=== PATIENT | male | born 1945 | race Caucasian/White ===

== ENCOUNTER 2017-08-03 14:31 | Emergency (ER) | payer BC ==
--- NOTE | 2017-08-03 14:38 | PDOC ---
History of Present Illness - General History Source: Patient, EMS, Co-worker Exam Limitations: No Limitations - History of Present Illness Initial Comments: 08/03/17 15:28 72 y.o male with significant PMHx of Afib (on eliquis), HTN, HLD, COPD and anxiety, who presents to the emergency room complaining of right lower extremity weakness that began at 1:15pm this afternoon. He reports feeling jumpy , then felt that his right lower extremity felt weak and started to drag behind him. 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 The patients coworker states that the patient has been working long hours and is under a lot of stress to take care of family members at home. On the way to [place], the patient developed expressive aphasia and right sided facial droop. Within 1 minute the expressive aphasia resolved. He was A&O x3, but still had right sided weakness. Denies chest pain, SOB, cough. Denies fever, chills, nausea, vomiting. Denies recent illness. Denies leg swelling. Allergies: Not recorded PCP: not affiliated - [facility] <Tiara Gonzalez - Last Filed: 08/03/17 16:49> <Belem Flores - Last Filed: 08/03/17 17:40> - General Chief Complaint: CVA/TIA Stated Complaint: RT EYE DROOP,RT LEG NUMB Time Seen by Provider: 08/03/17 14:34 Past History <Tiara Gonzalez - Last Filed: 08/03/17 16:49> <Belem Flores - Last Filed: 08/03/17 17:40> - Past Medical History Allergies/Adverse Reactions: Allergies Allergy/AdvReac Type Severity Reaction Status Date / Time No Known Allergies Allergy Verified 08/03/17 14:47 Home Medications: Ambulatory Orders Atorvastatin Ca [Lipitor] 10 mg PO HS 08/03/17 Diovan 08/03/17 Eliquis 08/03/17 Metoprolol Succinate 08/03/17 Paroxetine HCl [Paxil] 10 mg PO 08/03/17 Umeclidinium Brm/Vilanterol Tr [Anoro Ellipta 62.5-25 Mcg INH] 1 each IH DAILY 08/03/17 Review of Systems - Review of Systems Able to Perform ROS?: Yes Comments:: 08/03/17 15:28 GENERAL/CONSTITUTIONAL: No fever or chills. No weakness. HEAD, EYES, EARS, NOSE AND THROAT: No change in vision. No ear pain or discharge. No sore throat. GASTROINTESTINAL: No nausea, vomiting, diarrhea or constipation. GENITOURINARY: No dysuria, frequency, or change in urination. CARDIOVASCULAR: No chest pain or shortness of breath. RESPIRATORY: No cough, wheezing, or hemoptysis. MUSCULOSKELETAL: No joint or muscle swelling or pain. No neck or back pain. SKIN: No rash NEUROLOGIC: +right lower extremity weakness. No headache, vertigo, loss of consciousness. ENDOCRINE: No increased thirst. No abnormal weight change. HEMATOLOGIC/LYMPHATIC: No anemia, easy bleeding, or history of blood clots. ALLERGIC/IMMUNOLOGIC: No hives or skin allergy. <Tiara Gonzalez - Last Filed: 08/03/17 16:49> *Physical Exam - Vital Signs Last Vital Signs Temp Pulse Resp BP Pulse Ox 98.2 F 79 20 170/88 99 08/03/17 14:33 08/03/17 14:33 08/03/17 14:33 08/03/17 15:07 08/03/17 14:33 - Physical Exam Comments: 08/03/17 15:28 GENERAL: Awake, alert, and fully oriented, in no acute distress HEAD: No signs of trauma EYES: PERRLA, EOMI, sclera anicteric, conjunctiva clear ENT: Auricles normal inspection, hearing grossly normal, nares patent, oropharynx clear without exudates. Moist mucosa NECK: Normal ROM, supple, no lymphadenopathy, JVD, or masses LUNGS: Breath sounds equal, clear to auscultation bilaterally. No wheezes, and no crackles HEART: Regular rate and rhythm, normal S1 and S2, no murmurs, rubs or gallops ABDOMEN: Soft, nontender, normoactive bowel sounds. No guarding, no rebound. No masses EXTREMITIES: Normal range of motion, no edema. No clubbing or cyanosis. No cords, erythema, or tenderness BACK: No midline spinal tenderness in cervical/thoracic/lumbar region NEUROLOGICAL: +expressive aphasia, +R sided facial droop with forehead sparing , negative pronator drift, 4/5 strength in RLE, 5/5 strength in remaining extremities, normal sensation to light touch in all 4 extremities, normal cerebellar exam, gait deferred SKIN: Warm, Dry, normal turgor, no rashes or lesions noted. <Robert Gonzalezssica - Last Filed: 08/03/17 16:49> NIH Stroke Scale - Last Known Well Date/Time & Onset Date Last Known Well: 08/03/17 Time Last Known Well: 13:15 - Initial Evaluation Level of consciousness: Alert Ask patient the month and their age: Both incorrect Ask patient to open & close eyes; make fist and let go: Both incorrect Best gaze (horizontal eye movement): Normal Visual field testing: No visual field loss Facial paresis (Show teeth/raise eyebrows/close eyes tight): Complete paralysis of one or both sides (Upper and lower face) Motor Function: Left Arm: Normal Motor Function: Right Arm: Normal (extends arm 90 (or 45) degrees for 10 seconds without drift Motor Function: Left Leg: Normal (extends leg 30 degrees for 5 seconds without drift) Motor Function: Right Leg: Drift Limb Ataxia: No ataxia Sensory(Use pinprick test arms,legs,trunk,face/side to side): Normal Best language (Describe picture, name items, read sentences): Severe aphasia Dysarthria (read several words): Near unintelligible or unable to speak Extinction and Inattention: No abnormality - Total Score NIH Stroke Scale Score: 12 <Belem Flores - Last Filed: 08/03/17 17:40> Critical Care Time/MDM Note Total Critical Care Time: 60 Critical Care Statement: The care of this patient involved high complexity decision making to prevent further life threatening deterioration of the patient 's condition and/or to evaluate & treat vital organ system(s) failure or risk of failure. - Medical Decision Making Note: 08/03/17 15:12 72-year-old male with a history of A. fib on Eliquis, hypertension, hyperlipidemia, COPD, depression presents with stroke symptoms. Vitals remarkable for hypertension to 170s systolic. Initial exam with an NIH stroke scale of 1 due to right lower extremity weakness however on the way to CT scan, the patient developed a right facial droop, and expressive aphasia, stroke scale now 14. Initial CTH with likely temperal-occipital L sided acute stroke. Although pt is in TPA window, upon discussion with Dr. Baker, pt is not a TPA candidate due to eliquis (last taken this morning). He is however, possibly a candidate for clot retrieval. Pt currently at [facility], will discuss with radiology and possibly transfer to [facility] as soon as images are up. For now, will leave BP as is due to the ischemic nature of the stroke. Labs pending. 08/03/17 16:[address] Diana Driscoll ([phone]) who is a HEARING AID ASSIST[employer] doctor in [place] called in, she will be taking a flight in this evening. CTA with truncation of [employer] adjacent to ischemic territory. Discussed with Dr. Combs, although small vessel truncation, will discuss with [facility]. A code brain was called into the [facility] transfer center, I spoke with stroke fellow Dr. Kaleb Albert who accepts the patient for transfer under attending Dr. Arzola from neuro. Pt accepted to the ER, I spoke with ER attending Dr. Womack and discussed the transfer. In the meantime, I ordered another bolus for the patient for permissive HTN and ordered ASA 325mg. He currently c/o word finding difficulty and RLE weakness. I will call his daughter to update her currently. 08/03/17 17:[address] Driscoll informed of transfer. Currently awaiting transport. \ 08/03/17 17:40 ACLS crew has arrived to transport patient to [facility]. <Belem Flores - Last Filed: 08/03/17 17:40> Discharge Disposition <Tiara Gonzalez - Last Filed: 08/03/17 16:49> - Discharge Dispostion Admit: No - Transfer to Acute Care Facility Receiving Facility: [facility] <Belem Flores - Last Filed: 08/03/17 17:40> - Diagnosis Cerebrovascular accident (CVA) - Discharge Dispostion Disposition: TRANSFER ACUTE CARE/OTHER HOSP Condition at time of disposition: Guarded ED Treatment Course - LABORATORY CBC & Chemistry Diagram: 08/03/17 14:33 08/03/17 14:33 - ADDITIONAL ORDERS Additional order review: Laboratory Results 08/03/17 08/03/17 14:33 14:33 Sodium 141 Potassium 4.3 Chloride 105 Carbon Dioxide 27 Anion Gap 9 BUN 17 Creatinine 1.1 Creat Clearance w eGFR > 60 Random Glucose 108 H Calcium 9.8 Total Bilirubin 0.8 AST 24 ALT 23 Alkaline Phosphatase 48 Creatine Kinase 55 Troponin I < 0.03 L Total Protein 7.3 Albumin 4.6 Triglycerides 55 Cholesterol 162 HDL Cholesterol 46 08/03/17 14:33 RBC 5.62 H MCV 86.5 MCHC 34.1 RDW 12.7 MPV 9.1 Neutrophils % 78.0 Lymphocytes % 14.0 Monocytes % 6.6 Eosinophils % 1.3 Basophils % 0.1 - RADIOLOGY Radiograph Interpretation: 08/03/17 16:49 EXAM#: TYPE/EXAM: RESULT: [id number] CT/BRAIN CTA Brain CT angiography CLINICAL INFORMATION: right lower extremity weakness, right facial weakness, expressive aphasia Multiplanar imaging was performed following the intravenous bolus administration of nonionic contrast. Individual partition images as well as projection and reformatted images are reviewed. Delayed contrast-enhanced imaging was also performed with comparison to a noncontrast CT exam performed earlier the same date. There is slight attenuation of the left posterior cerebral artery distally within the territory of an acute left occipital-temporal cortical infarct identified on CT. No intraluminal embolus/thrombus is identified. There is no extrinsic abnormality. The vertebrobasilar and carotid circulations otherwise appear unremarkable. A 1.7 x 1.4 cm moderately hyperdense left medial frontal focus described on noncontrast CT demonstrates minimal to mild contrast enhancement. No perilesional edema or mass effect is identified. IMPRESSION: There is minimal truncation of the left posterior cerebral artery distally probably in association with an acute nonhemorrhagic left occipital-temporal cortical infarct identified on CT. A 1.7 x 1.4 cm left medial frontal lesion is seen which on the basis of CT may represent a cavernous hemangioma, or primary neoplastic disease and less likely a subacute infarct. No associated edema or mass effect is identified. MRI evaluation is suggested, preferably without and with contrast. Reported By: James Saha MD 08/03/17 1610 EXAM#: TYPE/EXAM: RESULT: [id number] CT/HEAD CT (STROKE) Cranial CT (without contrast) Clinical information: evaluate for CVA The exam consists of contiguous direct transaxial images. Intravenous contrast was not administered. Acute nonhemorrhagic cortical infarct is seen involving the left occipital lobe and contiguous left medial temporal lobe. A 1.7 x 1.4 cm moderately hyperdense structure is noted partly abutting the left lateral border of the cerebral falx in the frontal region at the mid to high convexity level. No associated mass effect or edema is is identified. There is no extra-axial fluid collection. No midline displacement is seen. Involutional changes are noted with mild ventricular dilatation. No calvarial defect is noted. IMPRESSION: Acute nonhemorrhagic left occipital-temporal cortical infarct. A 1.7 x 1.4 cm moderately hyperdense focus is seen adjacent to the left lateral border of the frontal cerebral falx as discussed above probably representing a meningioma and less likely other pathology. Correlate with the results of CT angiography and contrast-enhanced CT. Reported By: James Saha MD 08/03/17 1515 - Medications Given in the ED: ED Medications Discontinued Medications Generic Name Dose Route Start Last Admin Trade Name Freq PRN Reason Stop Dose Admin Aspirin 324 mg 08/03/17 16:13 08/03/17 16:45 Asa - PO 08/03/17 16:14 324 mg ONCE ONE Administration Sodium Chloride 1,000 ml 08/03/17 16:14 08/03/17 16:45 Normal Saline - IV 08/03/17 16:15 1,000 ml ONCE ONE Administration <Tiara Gonzalez - Last Filed: 08/03/17 16:49> - LABORATORY CBC & Chemistry Diagram: 08/03/17 14:33 08/03/17 14:33 <Belem Flores - Last Filed: 08/03/17 17:40>
[2017-08-03] MEDS ORDERED: SODIUM CHLORIDE 1,000 ML IV SCH (14:45)
[2017-08-03 15:03] VITALS: BMI 29.0
[2017-08-03 15:07] LABS: BASO % 0.1 % (0-2.0); EOS % 1.3 % (0-4.5); MCH 29.5 pg (25.7-33.7); MCHC 34.1 g/dl (32.0-35.9); MEAN CELL VOLUME 86.5 fl (80-96); MEAN PLT VOLUME 9.1 fl (7.5-11.1); PLATELET COUNT 303 K/MM3 (134-434); RDW 12.7 % (11.9-15.9); WHITE BLOOD COUNT 12.1 K/mm3 (4.0-10.8)
[2017-08-03 15:49] LABS: CPK 55 IU/L (39-308)
[2017-08-03 15:59] LABS: ALBUMIN 4.6 g/dl (3.5-5.0); ALK PHOS 48 U/L (32-92); ANION GAP 9 (8-16); BILIRUBIN,TOTAL 0.8 mg/dl (0.2-1.0); CALCIUM 9.8 mg/dl (8.4-10.2); CHOLESTEROL 162 mg/dl; CO2 27 mmol/L (22-28); CREATININE 1.1 mg/dl (0.6-1.3); GLUCOSE,RANDOM 108 mg/dl (74-106); SGOT/AST 24 U/L (10-42); SGPT/ALT 23 U/L (10-40); TOT PROT 7.3 g/dl (6.4-8.3)
[2017-08-03 16:00] LABS: INR 1.27 (0.82-1.09); PROTHROMBIN TIME (PATIENT) 14.1 SEC (10.2-13.0)
[2017-08-03 16:06] LABS: TROPONIN I (DFP) < 0.03 ng/ml (0.03-0.50)
[2017-08-03] MEDS ORDERED: ASPIRIN 81 MG CHEWABLE TABLETS PO ONE (16:13)
[2017-08-03] MEDS ORDERED: SODIUM CHLORIDE 0.9% 500 ML INFUS.BAG IV ONE (16:14)
[2017-08-03] MEDS ORDERED: ASPIRIN 81 MG CHEWABLE TABLETS ONE (16:46)
[2017-08-03 17:09] VITALS: TEMP 98.4
[2017-08-03 17:17] LABS: EOS # 0.2 #; LYMPH # 1.7 # (8-40); MONO # 0.8 #; NEUT # 9.4 # (42.8-82.8)
[2017-08-03 17:25] VITALS: BP 162/91
[2017-08-03 17:26] VITALS: PULSE 74
--- NOTE | 2017-08-04 08:59 | EKG ---
Test Reason : Blood Pressure : / mmHG Vent. Rate : 088 BPM Atrial Rate : 088 BPM P-R Int : 168 ms QRS Dur : 092 ms QT Int : 380 ms P-R-T Axes : 086 -19 040 degrees QTc Int : 459 ms NORMAL SINUS RHYTHM NORMAL ECG NO PREVIOUS ECGS AVAILABLE Confirmed by WILLIAM BOWLES MD ([id number]) on 08/04/2017 8:58:54 AM Referred By: DR ALBERTO Confirmed By:WILLIAM BOWLES MD
== END 2017-08-03 17:45 | disposition short-term general hospital (02) ==
LOC: FER 14:31
PROC: 3E0337Z Introduction of Electrolytic and Water Balance Substance into Peripheral Vein, Percutaneous Approach (ICD-10-PCS; principal; 2017-08-03)
DX: I63.9 Cerebral infarction, unspecified (principal); I48.91 Unspecified atrial fibrillation; Z79.84 Long term (current) use of oral hypoglycemic drugs; J44.9 Chronic obstructive pulmonary disease, unspecified; F32.9 Major depressive disorder, single episode, unspecified; I10 Essential (primary) hypertension
CPT/HCPCS: 70450-TC; 70496-TC; 71010-TC; 80053; 82465; 82550; 83718; 83721; 84478; 84484; 85025; 85610; 86850; 86900; 86901; 93005; 99285-25